=== PATIENT | male | born 1970 | race Hispanic/Latino ===

== ENCOUNTER 2016-09-01 17:07 | Inpatient (IN) | payer OTHER ==
[2016-09-01] MEDS ORDERED: NORCO 5/325 PO ONE (22:26)
--- NOTE | 2016-09-01 22:26 | Emergency Department Report ---
ED ENT HPI - General Chief complaint: Dental/Oral Stated complaint: SWOLLEN GUMS Time Seen by Provider: 09/01/16 22:19 Source: patient, police Mode of arrival: Ambulatory Limitations: No Limitations - History of Present Illness Initial comments: Patient here in custody coming from halfway facility complaint abscess to facial area and toothache. He reports he was sent by dentist to the hospital for drainage of abscess. Patient had similar incident in the past which required surgical intervention. Paperwork sent from facility suggest patient has dental abscess with facial swelling 6 days which has not improved with antibiotic therapy and he has a history of facial abscess with surgical intervention. Reports said that patient with cavity due to #14 with swelling of cold vestibule along with cellulitis of left cheek and left eye. And reported it says that they did x-ray which revealed gross decay if #14. Patient was given Rocephin 1 g IM at 2 AM 09/01/2016 and he is currently on Cleocin for 50 mg along with amoxicillin 500 mg twice a day which was given on and started on 08/26/2016. Patient denies any fever or chills. He reports that pain to left facial area is 10 out of 10. Denies any difficulty swallowing, drooling or swelling of throat. MD complaint: tooth pain, other (Lt facial swelling) Onset/Timin -: days(s) Location: tooth # (Lt upper back tooth), other (Lt face) Severity: severe Severity scale (0 -10): 10 Quality: aching, constant Improves with: none Worsens with: medication Context-Epistaxis: history of similar Context- Dental: history of dental caries, poor dental care Associated Symptoms: gum swelling, toothache. denies: fever, cough, pain with swallowing, sore throat, tinnitus, hearing loss, discharge from ear, rhinorrhea - Related Data Allergies Allergy/AdvReac Type Severity Reaction Status Date / Time No Known Allergies Allergy Verified 09/02/16 01:11 ED Dental HPI - General Chief complaint: Dental/Oral Stated complaint: SWOLLEN GUMS Time Seen by Provider: 09/01/16 22:19 Source: patient Mode of arrival: Ambulatory Limitations: No Limitations - Related Data Allergies Allergy/AdvReac Type Severity Reaction Status Date / Time No Known Allergies Allergy Verified 09/02/16 01:11 ED Review of Systems ROS: Stated complaint: SWOLLEN GUMS Other details as noted in HPI Comment: All other systems reviewed and negative Constitutional: denies: chills, fever Eyes: denies: vision change ENT: dental pain, other (Facial swelling) Respiratory: no symptoms reported Cardiovascular: denies: chest pain, palpitations, edema, syncope Gastrointestinal: denies: nausea, vomiting Musculoskeletal: denies: back pain, arthralgia Skin: denies: rash Neurological: denies: headache, numbness, paresthesias ED Past Medical Hx - Past Medical History Previous Medical History?: Yes Additional medical history: Tooth abscess - Surgical History Past Surgical History?: No - Family History Family history: no significant - Social History Smoking Status: Current Every Day Smoker Substance Use Type: None ED Physical Exam - General Limitations: No Limitations General appearance: alert, in no apparent distress - Head Head exam: Present: atraumatic, normocephalic, normal inspection - Eye Eye exam: Present: normal appearance, PERRL, EOMI. Absent: periorbital swelling , periorbital tenderness Pupils: Present: normal accommodation - ENT ENT exam: Present: normal orophraynx, mucous membranes moist, TM's normal bilaterally, normal external ear exam, other (left upper lip buccal area with swelling and tenderness.) - Expanded ENT Exam Expanded Ear exam: Present: normal external inspection Mouth exam: Present: tongue normal. Absent: drooling, trismus, muffled voice, laceration Teeth exam: Present: dental caries, dental tenderness # (#14), gingival enlargement, other (patient with left facial swelling at maxillary area with positive induration and fluctuance.) Throat exam: Positive: normal inspection - Neck Neck exam: Present: normal inspection, full ROM, lymphadenopathy. Absent: tenderness, meningismus - Respiratory Respiratory exam: Present: normal lung sounds bilaterally. Absent: respiratory distress, chest wall tenderness - Cardiovascular Cardiovascular Exam: Present: regular rate, normal rhythm, normal heart sounds - Extremities Exam Extremities exam: Present: normal inspection, full ROM, normal capillary refill. Absent: tenderness, pedal edema, joint swelling - Neurological Exam Neurological exam: Present: alert, altered, normal gait - Psychiatric Psychiatric exam: Present: normal affect, normal mood - Skin Skin exam: Present: warm, dry, normal color, other (cellulitis and abscess) - Expanded Skin Exam Expanded Description of rash: Present: tenderness (left facial area), erythematous (left facial area), swelling (facial area), indurated. Absent: discharge, fluctuant ED Course Vital Signs 09/01/16 09/01/16 09/02/16 17:52 21:30 01:42 Temperature 98.8 F 98.6 F 100.2 F H Pulse Rate 71 83 94 H Respiratory 18 18 20 Rate Blood Pressure 146/100 Blood Pressure 134/95 130/99 [Right] O2 Sat by Pulse 100 98 96 Oximetry - Reevaluation(s) Reevaluation #1: 09/01/16 23:58 Patient stable and awaiting CT scan with IV contrast. Pain relief with [place] 5/ 325 2 tablets. Reevaluation #2: 09/02/16 01:28 Patient to be admitted to [facility] [place] floor. Spoke with Dr. Valencia . Patient updated on decision to admit ED Medical Decision Making - Lab Data Result diagrams: 09/01/16 23:04 09/01/16 23:04 Lab Results 09/01/16 09/01/16 Range/Units 23:04 23:04 WBC 8.1 (4.5-11.0) K/mm3 RBC 4.07 (3.65-5.03) M/mm3 Hgb 13.0 (11.8-15.2) gm/dl Hct 38.3 (35.5-45.6) % MCV 94 (84-94) fl MCH 32 (28-32) pg MCHC 34 (32-34) % RDW 12.4 L (13.2-15.2) % Plt Count 240 (140-440) K/mm3 Lymph % (Auto) 20.3 (13.4-35.0) % [place] % (Auto) 8.1 H (0.0-7.3) % Eos % (Auto) 1.4 (0.0-4.3) % Baso % (Auto) 0.4 (0.0-1.8) % Lymph # 1.7 (1.2-5.4) K/mm3 [place] # 0.7 (0.0-0.8) K/mm3 Eos # 0.1 (0.0-0.4) K/mm3 Baso # 0.0 (0.0-0.1) K/mm3 Seg Neutrophils % 69.8 (40.0-70.0) % Seg Neutrophils # 5.7 (1.8-7.7) K/mm3 Sodium 139 (137-145) mmol/L Potassium 4.5 (3.6-5.0) mmol/L Chloride 99.0 (98-107) mmol/L Carbon Dioxide 23 (22-30) mmol/L Anion Gap 22 mmol/L BUN 12 (9-20) mg/dL Creatinine 0.6 L (0.8-1.5) mg/dL Estimated GFR > 60 ml/min BUN/Creatinine Ratio 20.00 % Glucose 91 (75-100) mg/dL Calcium 9.2 (8.4-10.2) mg/dL Cultures are pending - Radiology Data Radiology results: report reviewed CT scan of the neck with IV contrast reveals findings are consistent with left facial cellulitis and abscess over the anterior alveolar ridge/lower maxillary sinus. No evidence of osteomyelitis. Reactive left cervical adenopathy - Medical Decision Making ED course: Consent from correction facility for evaluation and treatment of facial abscess. CT scan report that patient with left facial cellulitis and abscess over left lower maxillary sinus. This was communicated to patient also decision to admit was medicated to patient. Patient given [place] 5/325 mg in emergency room to manage pain which brought his pain down to a 4 out of 10. CBC and BMP within normal limits. I collaborated with Dr. Tong on patient presentation, clinical findings. Patient to be admitted to patient for further evaluation and treatment for facial cellulitis and abscess. I spoke with Dr. Valencia who will be admitting patient inpatient. Critical care attestation.: If time is entered above; I have spent that time in minutes in the direct care of this critically ill patient, excluding procedure time. ED Disposition Clinical Impression: Cellulitis and abscess of mouth, Cellulitis and abscess of face Disposition: OP ADMITTED IP TO THIS HOSP Is pt being admited?: Yes Does the pt Need Aspirin: No Condition: Stable
[2016-09-01 23:37] LABS: Anion Gap 22 mmol/L; Blood Urea Nitrogen 12 mg/dL (9-20); Calcium 9.2 mg/dL (8.4-10.2); Carbon Dioxide 23 mmol/L (22-30); Glucose 91 mg/dL (75-100); Potassium 4.5 mmol/L (3.6-5.0); Sodium 139 mmol/L (137-145)
[2016-09-01 23:40] LABS: Basophils % (Auto) 0.4 % (0.0-1.8); Eosinophils % (Auto) 1.4 % (0.0-4.3); Hematocrit 38.3 % (35.5-45.6); Mean Corpuscular HGB Conc 34 % (32-34); Mean Corpuscular Hemoglobin 32 pg (28-32); Mean Corpuscular Volume 94 fl (84-94); Platelet Count 240 K/mm3 (140-440); Red Blood Count 4.07 M/mm3 (3.65-5.03); Red Cell Distribution Width 12.4 % (13.2-15.2); White Blood Count 8.1 K/mm3 (4.5-11.0)
--- NOTE | 2016-09-02 00:56 | Cat Scan Report ---
FINAL REPORT EXAM: CT NECK W CON HISTORY: Llt maxillary abscess TECHNIQUE: Helical CT was performed from the skull base to the thoracic inlet after the administration of iodinated intravenous contrast. PRIORS: None. FINDINGS: There is soft tissue swelling and edema of the left side of the face greatest over the alveolar ridge. Anterior to the lower left maxillary sinus and alveolar ridge, there is and area of low-attenuation with a thin enhancing rim consistent with an abscess. It measures 2.3 x 1.1 x 2.0 cm. The pharynx and para-pharyngeal soft tissues appear normal. The parotid and submandibular glands appear normal. The thyroid appears normal. The vascular structures appear normal. The bones are unremarkable. There are multiple enlarged left cervical lymph nodes especially of the submandibular area. There is mucosal thickening in the left maxillary sinus. The orbits appear normal. The visualized brain parenchyma appears within normal limits. IMPRESSION: 1. Findings are consistent with left facial cellulitis and an abscess over the anterior alveolar ridge/lower left maxillary sinus. 2. No evidence of osteomyelitis. 3. Reactive left cervical adenopathy
[2016-09-02] MEDS ORDERED: NACL 0.9% 1000 ML 1,000 ML IV ONE (01:22)
[2016-09-02] MEDS ORDERED: DILAUDID PO PRN (01:27)
[2016-09-02] MEDS ORDERED: DILAUDID ONE (03:33)
[2016-09-02] MEDS: ZOFRAN IV SCH ×6 (03:33→22:58)
[2016-09-02] MEDS: DILAUDID IV PRN ×4 (03:35→22:58)
[2016-09-02] MEDS ORDERED: MOTRIN ONE (03:44)
[2016-09-02] MEDS ORDERED: MOTRIN PO ONE ×2 (03:45→03:47)
[2016-09-02] MEDS ORDERED: ZOSYN/NS 3.375GM/50ML 3.375 GM/50 ML BAG IV SCH (06:00)
[2016-09-02] MEDS: UNASYN/NS 3 GM/100 ML 3 GM/100 ML BAG IV SCH ×3 (06:15→18:46)
--- NOTE | 2016-09-02 07:02 | Admit Criteria Form ---
Admission Criteria Documentation: CELLULITIS Clinical Indications for Admission to Inpatient Care (Place 'X' for any and all applicable criteria): Admission is indicated for ANY ONE of the following(1)(2)(3)(4)(5): [ ]I. Limb-threatening infection [ ]II. High-risk comorbid condition as indicated by ANY ONE of the following: [ ]a) Uncontrolled diabetes (eg, HbA1c greater than 10% (0.1)) [ ]b) Cirrhosis [ ]c) Neutropenia [ ]d) Asplenia [ ]e) Immunosuppression [ ]f) Symptomatic heart failure [ ]III. Failure of outpatient therapy as indicated by ALL of the following: [ ]a) Progression or no improvement after adequate trial (minimum of 48 hours, with longer period for stable lower extremity infection) [ ]b) Adequate antibiotic regimen as indicated by use of ANY ONE of the following: [ ]i) First-generation cephalosporin (e.g., cephalexin) [ ]ii) Antistaphylococcal penicillin (e.g., dicloxacillin) [ ]iii) Penicillin-allergic patient regimen (clindamycin, extended-spectrum fluoroquinolone, or doxycycline) [ ]iv) Resistant organism (eg, methicillin-resistant Staphylococcus aureus) regimen (6) [ ]c) Outpatient intravenous therapy regimen is not appropriate due to ANY ONE of the following. (7)(8)(9)(10): [ ]i) It was tried and was not successful (eg, progression of infection). [ ]ii) It is not available or cannot be arranged in a clinically appropriate time frame (e.g., the next day). [ ]iii) Clinical presentation (eg, acuity of infection, rapidity of progression, confirmed or suspected bacteremia) is judged to require ALL of the following: [ ]1) Immediate initiation of intravenous therapy ( eg, cannot wait for next day) [ ]2) Intensity of patient monitoring and observation (eg, vital sign measurement, checks for infection progression) that cannot be provided at other than inpatient level of care [ ]IV. Mental status changes [ ]V. Bacteremia [ ]. Hemodynamic instability [ ]VII. Suspected necrotizing soft tissue infection (e.g., gas in tissue)(11)( 12) [ ]VIII. Orbital infection (13)(14) [X]IX. Associated surgical procedure (e.g., abscess drainage, debridement) not amenable to outpatient, emergency department, or observation care [ ]X. Cutaneous gangrene [ ]XI. High fever (temperature greater than 39.5 degrees C (103.1 degrees F) (oral)) not responsive to outpatient, emergency department, or observation care therapy [ ]XIII. Inpatient admission required rather than observation care (Also use Cellulitis: Observation Care as appropriate) because of ANY ONE of the following : [ ]a) Periorbital or perineal infection that is severe or worsening [ ]b) Severe pain requiring acute inpatient management [ ]c) IV fluid to replace significant ongoing (e.g., for over 24 hours) losses (greater than 3L/m2 per day) [ ]d) Compartment syndrome monitoring (17) [ ]e) Strict or protective (eg, laminar flow) isolation [ ]f) Urgent debridement or skin grafting [ ]g) Bone or joint debridement [ ]h) Immediate inpatient surgery [ ]i) Other condition, treatment or monitoring requiring inpatient admission Extended stay beyond goal length of stay may be needed for (1)(18): [ ]a) Necrotizing soft tissue infection or fasciitis [ ]b) Gram-negative infection [ ]c) Methicillin-resistant Staphylococcal aureus (MRSA) infection [ ]d) Peripheral venous insufficiency with cellulitis [ ]e) Extensive edema [ ]f) Sepsis or continued Hemodynamic instability [ ]g) Continued high fever or mental status change [ ]h) Bacteremia [ ]i) Active serious comorbid conditions ( eg, heart failure, renal insufficiency) The original [employer] content created by [employer] has been revised. The portions of the content which have been revised are identified through the use of italic text or in bold, and [facility] has neither reviewed nor approved the modified material. All other unmodified content is copyright [email or web address] [employer] Please see references footnoted in the original [facility] edition 2016 Admission Criteria Met: Yes
--- NOTE | 2016-09-02 07:25 | Event Note ---
Date: 09/02/16 See H/p in reports L facial abscess on Un[facility] Surgery consult -Dr Hanson
[2016-09-02] MEDS: PERCOCET 5/325 PO PRN ×2 (10:26→13:54)
--- NOTE | 2016-09-02 11:13 | Cat Scan Report ---
CT HEAD WITHOUT CONTRAST: HISTORY: Abscess. Serial contiguous axial images were obtained through the cranium. Intravenous contrast material was not administered. The ventricles are normal in size and appearance. There is no mass effect or midline shift. No areas of abnormally increased or decreased attenuation are seen. No mass lesion is seen. IMPRESSION: Cranial CT scan within normal limits.
--- NOTE | 2016-09-02 11:19 | Cat Scan Report ---
CT FACIAL BONES WITHOUT CONTRAST History: Abscess. Technique: Helical CT with sagittal and coronal reformatted images. Findings: There is moderate to severe left facial soft tissue swelling. No IV contrast was administered which limits this exam, but no encapsulated fluid collection consistent with abscess is identified on noncontrast CT. The facial bones are intact. No evidence for fracture or bony destruction. A left maxillary molar appears to have eroded through the left maxillary bone which is best appreciated on image 82, series 2. There is a small amount of lucency surrounding the tooth root. This may represent an early periapical tooth abscess. Please correlate with the patient. There is moderate mucosal thickening in the left maxillary sinus. The remaining sinuses are clear. Impression: Left facial soft tissue swelling as outlined above. No discrete abscess is visualized. This may arise from poor dentition as outlined above.
--- NOTE | 2016-09-02 12:54 | History and Physical Report ---
CHIEF COMPLAINT: Left facial swelling. HISTORY OF PRESENT ILLNESS: A 45-year-old shelter inmate male brought in for left facial area redness and swelling and toothache. The patient was sent to the dentist for drainage of abscess. The patient had similar incident in the past, which required surgical intervention. The patient has dental abscess with facial swelling for 6 days, which has not improved with antibiotic therapy. The patient has had cavity in the teeth #14 with left cheek swelling extending up to the left eye. The patient was given Rocephin in the ER. No fever, no chills. Pain is about 8 on a scale of 1-10. PAST MEDICAL HISTORY: Leukocytosis. No hypertension, no diabetes. PAST SURGICAL HISTORY: None. FAMILY HISTORY: No significant family history. SOCIAL HISTORY: Smokes about a pack a day. REVIEW OF SYSTEMS: Significant for: CONSTITUTION: No fever, no chills. HEENT: As mentioned in the left facial swelling and redness present. NECK: Supple. No neck pain. CARDIOVASCULAR: No chest pain, no palpitations. RESPIRATORY: No shortness of breath or wheezing. No cough. GASTROINTESTINAL: No nausea, no vomiting, no diarrhea. GENITOURINARY: No dysuria, no flank pain. MUSCULOSKELETAL: No joint pains. No muscle pains. CENTRAL NERVOUS SYSTEM: No syncope, no seizures. PHYSICAL EXAMINATION: GENERAL: A middle aged male, cooperative during examination. VITAL SIGNS: Blood pressure is 134/95, repeat is 119/86, temperature is 101.2, pulse is 83, respirations are 18. HEENT: Unremarkable except for left facial swelling 4 x 4 cm with erythema present, induration present. Soft fluctuation present. NECK: Supple, no lymphadenopathy, no thyromegaly. LUNGS: Clear to auscultation and percussion. Good air entry. CARDIOVASCULAR: S1, S2 heard. No gallop, no murmur, no rub. Apical impulse in left fifth intercostal space and midclavicular line. ABDOMEN: Soft and benign. No hepatosplenomegaly. No guarding, no rigidity. Hernial orifices are normal. EXTREMITIES: Good pedal pulses. No pedal edema. CENTRAL NERVOUS SYSTEM: Alert and oriented x 4. NEUROLOGIC: Nonfocal exam. LABORATORY DATA: White count is 8100, H and H is 13.0 and 38.3, platelet count is 240,000. Sodium is 139, potassium is 4.5. BUN and creatinine is [address] shows findings consistent with left facial cellulitis and abscess over the anterior alveolar ridge. No evidence of osteomyelitis. Reactive left cervical adenopathy. It measures 2.3 x 1.1 x 2.2 cm anterior to the left lower maxillary sinus and alveolar ridge, consistent with an abscess. ASSESSMENT AND PLAN: 1. Left facial abscess, IV antibiotics for now. Surgical consult requested. IV clindamycin 900 mg q.8h started. 2. Deep venous thrombosis prophylaxis, Lovenox 40 mg subcutaneous daily. [facility]# [id number] JULIET/KOKI
--- NOTE | 2016-09-02 14:37 | Event Note ---
Date: 09/02/16 Patient with left facial abscess associated with dental. He was seen and examined. Surgeon consulted.
--- NOTE | 2016-09-03 00:26 | Consultation ---
HISTORY OF PRESENT ILLNESS: This man was seen in the Emergency Room, where he was in a [place] [facility] and over the last week has been experiencing severe pain to the left cheek area. It is increasing in intensity and in the last 2 days showed evidence of inflammation and redness in the entire cheek, impinging on his eye on the left side. The man told me he had the same about sometimes ago, but everything went fine. At this time, it was very severe. He never had an abdominal operation. He never had any surgery. He had CAT scan of the neck that was totally negative. CAT scan of the face; however, today was reviewed with Dr. Alvarenga, our radiologist. There is evidence of severe inflammation around his molar tooth on the left side with severe edema, no evidence of any abscess formation; however, with the above-mentioned findings, the patient was thus admitted for further evaluation. The patient was admitted under Dr. Valencia's service. PHYSICAL EXAMINATION: GENERAL: Showed a well preserved, obese white male, who is in no distress. He looked in pain to the left cheek that is moderately to severely edematous and inflamed, closing his left eye. HEAD AND NECK: Essentially negative otherwise. CHEST: Essentially clear. HEART: Sound normal to me. ABDOMEN: Protuberant, soft, benign. EXTREMITIES: Showed no significant edema. IMPRESSION AND PLAN: Severe cellulitis involving the left cheek and severe edema, radiologically seen on the head x-ray over the premolar and molar teeth on the left side superiorly. I believe this need to be addressed. Dr. Valencia is already going to admit him, going to be started on antibiotics and then we are going to repeat the same. I did indicate to the people and to the patient that he needs a dental evaluation. In the meantime, we are going to give some antibiotics, whenever he goes back to the facility they will inform the dental MD ,. JOB# [id number] CLAUDIA/KOKI
[2016-09-03] MEDS ORDERED: CEPHULAC PO ONE ×2 (00:43→23:30)
[2016-09-03] MEDS ORDERED: TYLENOL PO PRN (00:55)
[2016-09-03] MEDS: UNASYN/NS 3 GM/100 ML 3 GM/100 ML BAG IV SCH ×3 (01:10→11:22)
[2016-09-03] MEDS: ZOFRAN IV SCH (02:10)
[2016-09-03] MEDS: DILAUDID IV PRN ×4 (03:13→15:43)
[2016-09-03] MEDS: D5NS 1,000 ML IV SCH ×2 (03:22→15:42)
[2016-09-03] MEDS ORDERED: ZOFRAN IV PRN (05:09)
--- NOTE | 2016-09-03 09:57 | Discharge Summary ---
Providers - Providers Date of Admission: 09/02/16 01:24 Attending physician: WILLIAM THAO 09/02/16 07:26 Consult to Physician [CONS] Routine Consulting Provider: AMISHA TOMAS Reason For Exam: L facial abscess Place consult to:: Dr. Tomas Notified:: yes Phone number called:: [phone] Was contact made?: Yes If yes, spoke with:: Dr. Tomas Time called:: 09:05 Primary care physician: MINGO CHIN MD Hospitalization Condition: Stable Exam - Constitutional Vitals: Temp Pulse Resp BP Pulse Ox 99.3 F 62 18 107/71 94 09/03/16 07:30 09/03/16 07:30 09/03/16 07:30 09/03/16 07:30 09/03/16 07:30 Plan Follow up with: MINGO CHIN MD [Primary Care Provider] - 7 Days
--- NOTE | 2016-09-03 14:06 | Progress Note ---
Assessment and Plan Assessment and plan: left facial maxillary sinus abscess Fever due to above Plan: Change abx to zosyn Patient likely will need drainage from the left maxillary sinus abscess plan to d/c when skilled nursing authority can set up apt with oral surgeon cont to monitor cont supportive care and monitor clinically Continue DVT prophylaxis History Interval history: Patient seen and examined. Medical records and medication list reviewed. No acute event overnight noted by the RN. Patient complains of left-sided facial pain and swelling. Patient is tolerating diet. Discussed plan of care at bedside with patient. Hospitalist Physical - Physical exam Narrative exam: GENERAL: well-developed and well-nourished WM lying on bed appeared to be in no discomfort. HEENT: Normocephalic. Atraumatic. No conjunctival congestion or icterus. Patient has moist mucous membranes. left sided facial swelling, erythrema, tenderness and firmness. NECK: Supple. Trachea midline. CHEST/LUNGS: Clear to auscultated bilaterally, breathing nonlabored. No wheezes crackles or rhonchi. HEART/CARDIOVASCULAR: Regular in rate and rhythm. S1 and S2 positive. ABDOMEN: Abdomen is soft, nontender. Patient has normal bowel sounds. SKIN: There is no rash. Warm and dry. NEURO: No focal motor deficit. Follows command. MUSCULOSKELETAL: No joint effusion or tenderness. EXTRIMITY: No edema, no cyanosis or clubbing. PSYCH: Cooperative. - Constitutional Vitals: Temp Pulse Resp BP Pulse Ox 99.3 F 62 18 107/71 94 09/03/16 07:30 09/03/16 07:30 09/03/16 07:30 09/03/16 07:30 09/03/16 07:30 Results - Labs CBC & Chem 7: 09/01/16 23:04 09/01/16 23:04 Labs: Laboratory Last Values WBC 8.1 K/mm3 (4.5-11.0) 09/01/16 23:04 RBC 4.07 M/mm3 (3.65-5.03) 09/01/16 23:04 Hgb 13.0 gm/dl (11.8-15.2) 09/01/16 23:04 Hct 38.3 % (35.5-45.6) 09/01/16 23:04 MCV 94 fl (84-94) 09/01/16 23:04 MCH 32 pg (28-32) 09/01/16 23:04 MCHC 34 % (32-34) 09/01/16 23:04 RDW 12.4 % (13.2-15.2) L 09/01/16 23:04 Plt Count 240 K/mm3 (140-440) 09/01/16 23:04 Lymph % (Auto) 20.3 % (13.4-35.0) 09/01/16 23:04 [place] % (Auto) 8.1 % (0.0-7.3) H 09/01/16 23:04 Eos % (Auto) 1.4 % (0.0-4.3) 09/01/16 23:04 Baso % (Auto) 0.4 % (0.0-1.8) 09/01/16 23:04 Lymph # 1.7 K/mm3 (1.2-5.4) 09/01/16 23:04 [place] # 0.7 K/mm3 (0.0-0.8) 09/01/16 23:04 Eos # 0.1 K/mm3 (0.0-0.4) 09/01/16 23:04 Baso # 0.0 K/mm3 (0.0-0.1) 09/01/16 23:04 Seg Neutrophils % 69.8 % (40.0-70.0) 09/01/16 23:04 Seg Neutrophils # 5.7 K/mm3 (1.8-7.7) 09/01/16 23:04 Sodium 139 mmol/L (137-145) 09/01/16 23:04 Potassium 4.5 mmol/L (3.6-5.0) 09/01/16 23:04 Chloride 99.0 mmol/L (98-107) 09/01/16 23:04 Carbon Dioxide 23 mmol/L (22-30) 09/01/16 23:04 Anion Gap 22 mmol/L 09/01/16 23:04 BUN 12 mg/dL (9-20) 09/01/16 23:04 Creatinine 0.6 mg/dL (0.8-1.5) L 09/01/16 23:04 Estimated GFR > 60 ml/min 09/01/16 23:04 BUN/Creatinine Ratio 20.00 % 02/19/17 23:04 Glucose 91 mg/dL (75-100) 09/01/16 23:04 Calcium 9.2 mg/dL (8.4-10.2) 09/01/16 23:04 - Imaging and Cardiology Imaging and Cardiology: Report reviewed from CT scan of the head, face and neck.
--- NOTE | 2016-09-03 14:08 | Progress Note ---
Subjective Patient Reports: Positive: feels better, still having pain Narrative: feels 30% better swelling less ,on ampicillin will D/ S to have orthodetist seee Pt after leaving . Objective Vital Signs - 12hr 09/03/16 09/03/16 09/03/16 03:37 04:10 07:30 Temperature 101.6 F H 99.6 F 99.3 F Pulse Rate [ 84 62 Left] Respiratory 20 18 Rate Blood Pressure 111/62 107/71 [Left Arm] O2 Sat by Pulse 94 Oximetry - Labs 09/01/16 23:04 09/01/16 23:04
[2016-09-03] MEDS: ZOSYN/NS 4.5GM/100ML 4.5 GM/100 ML VIAL IV SCH ×2 (14:50→21:45)
--- NOTE | 2016-09-03 15:38 | Discharge Summary ---
Providers - Providers Date of Admission: 09/02/16 01:24 Date of discharge: 09/03/16 Attending physician: WILLIAM THAO 09/02/16 07:26 Consult to Physician [CONS] Routine Consulting Provider: AMISHA TOMAS Reason For Exam: L facial abscess Place consult to:: Dr. Tomas Notified:: yes Phone number called:: [phone] Was contact made?: Yes If yes, spoke with:: Dr. Tomas Time called:: 09:05 Primary care physician: SCIENTIFIC PHOTOGRAPHER Hospitalization Condition: Stable Hospital course: [facility] presented to ED with complaint of abscess to facial area and toothache. He was sent by dentist to the hospital for drainage of possible abscess. Paperwork sent from facility suggest patient has dental abscess with facial swelling 6 days which has not improved with antibiotic therapy and he has a history of facial abscess with surgical intervention. Reports said that patient with cavity due to #14 with swelling of cold vestibule along with cellulitis of left cheek and left eye. Patient was given Rocephin 1 g IM at 2 AM 09/01/2016 and he was on Cleocin for 50 mg along with amoxicillin 500 mg twice a day which was given on 09/01/2016 and started on 08/26/2016. He had CT of face which showed left facial cellulitis. Head Ct was unremarkable. He was placed on empirically on Unasyn and neck CT obtained which showed abscess formation at the left lower maxillary area. General surgeon was consulted and recommended to cont antibiotic iv and to be evaluated by oral surgeon for possible drainage. Patient continue to spike high fever and abx was changed to Zosyn. [facility] authority was notified and an appointment with an oral surgen was made at [place]. patient was kept NPO after midnight and was discharged around 6:30 am on 09/04/16. Patient was not seen on the day of discharge by MD. Discharge diagnoses: left facial maxillary sinus abscess Fever due to above Disposition: DISCHARGED TO HOME OR SELFCARE Time spent for discharge: 32 minutes Core Measure Documentation - Palliative Care Palliative Care/ Comfort Measures: Not Applicable - Core Measures Any of the following diagnoses?: none Exam - Constitutional Vitals: Temp Pulse Resp BP Pulse Ox 99.3 F 62 18 107/71 94 09/03/16 07:30 09/03/16 07:30 09/03/16 07:30 09/03/16 07:30 09/03/16 07:30 Plan Activity: advance as tolerated Weight Bearing Status: Weight Bear as Tolerated Diet: regular Follow up with: PRIMARY CARE, [Primary Care Provider] - 7 Days Prescriptions: oxyCODONE /ACETAMINOPHEN [Percocet 5/325 mg] 1 tab PO Q4H PRN #30 tablet PRN Reason: Pain, Moderate (4-6) Qsytkspomnoi-Bcuo-Qohtqfzf,Iso [Zosyn 4.5 gm/100 ml Galaxy Bag] 4.5 gm IV Q6H 10 Days
[2016-09-03] MEDS: PERCOCET 5/325 PO PRN (20:39)
[2016-09-03 23:17] VITALS: BP 109/80
[2016-09-04] MEDS: PERCOCET 5/325 PO PRN ×2 (01:14→05:14)
== END 2016-09-04 07:13 | disposition home or self-care (01) | DRG 603 ==
LOC: EEVIPCON 17:07 → ED 17:07 → 3A 09-02 01:24 → 4A 09-02 14:09 → 3A 09-02 23:48
PROVIDERS: ADMIT Internal Medicine; ATTEND Internal Medicine
DX: L02.01 Cutaneous abscess of face (principal); L03.211 Cellulitis of face; K12.2 Cellulitis and abscess of mouth; F17.210 Nicotine dependence, cigarettes, uncomplicated; J32.0 Chronic maxillary sinusitis
CPT/HCPCS: 36415; 70450; 70486; 70491; 80048; 85025; 87040; 96360; 96361; J0295; J1170; J2405; J2543; J7030; J7042; Q9967

== ENCOUNTER 2021-07-03 10:05 | Outpatient (CLI) | payer OTHER ==
[2021-07-03 11:23] LABS: Blood Urea Nitrogen 11 mg/dL (9-20)
--- NOTE | 2021-07-03 12:56 | Cat Scan Report ---
CT neck w con INDICATION / CLINICAL INFORMATION: 50 years Male; LEFT SUBMANDIBULAR MASS OMNI 300 75ML. TECHNIQUE: Contiguous thin cut axial images obtained through the neck following IV contrast. Sagittal and byrne l reconstructions performed by the technologist. All CT scans at this location are performed using CT dose reduction for ALARA by means of automated exposure control. COMPARISON: The study is compared to previous CT of 09/02/2016. FINDINGS: There is extensive left-sided cervical adenopathy with the largest nodes within the left ju gulodigastric region measuring 2.2 cm in greatest short axis dimension. There also prominent nodes mo re inferiorly with left level III node measuring 1.8 cm in short axis dimension. The findings would b e most concerning for neoplastic process such as primary lymphoma or metastatic disease and correlati on would be needed in this patient with history of left submandibular mass and any previous outside i maging. MUCOSAL SPACE: There is mild asymmetry of the left parapharyngeal soft tissues which may be related t o the degree of mass effect from the adenopathy. There is also relative effacement of the left pyrifo rm sinus with slight encroachment on the left lateral epiglottis at. There are incidental foci of renee cification within the right palatine soft tissues. The motion degrades image quality at the level the vocal cords. However, there appears be mild mild relative effacement of the left pyriform sinus. LYMPH NODES: As above with extensive left-sided cervical adenopathy. There are smaller nodes along th e right jugular chain which appear to measure less than 1 cm in short axis dimension and may be react lindsey. SALIVARY GLANDS: There appears be slight mass effect upon the left 70 better gland. However, no defin itive focal lesions are appreciated. Correlation would again be needed given history and any previous outside imaging. The visualized parotid glands also appear to symmetric attenuation without calcific ation. THYROID GLAND: Unremarkable. PARANASAL SINUSES: There is mild mucosal thickening along the inferior left maxillary sinus. SPINE: No significant abnormality of the cervical spine appreciated. VASCULAR STRUCTURES: The left-sided adenopathy results in compression of the left internal jugular ve in. However, there is no evidence of thrombosis at. The CT chest will be dictated separately. IMPRESSION: 1. There is extensive left-sided cervical adenopathy most concerning for neoplastic process as detail ed above. Signer Name: Jesus Bhandari MD Signed: 07/03/2021 12:51 PM Workstation Name: [id number]
--- NOTE | 2021-07-03 13:52 | Cat Scan Report ---
CT CHEST WITH CONTRAST INDICATION / CLINICAL INFORMATION: LEFT SUBMANDIBULAR MASS OMNI 300 75ML. TECHNIQUE: Axial CT images were obtained through the chest after IV contrast. All CT scans at this [facility] located within [facility] are performed using CT dose reduction for ALARA by means of automated exposure control. COMPARISON: CT neck 07/03/2021 FINDINGS: HEART: No significant abnormality. CORONARY ARTERY CALCIFICATION: None. THORACIC AORTA: No significant abnormality. MEDIASTINUM / IRAIDA: No significant abnormality. PLEURA: No pleural effusion. No pneumothorax. LUNGS: Mild tree-in-bud nodularity in the lingula. There is a 6 mm noncalcified nodule in the right m iddle lobe. ADDITIONAL FINDINGS: There are enlarged cervical lymph nodes in the lower neck as seen on series 2 im age 1 measuring 1.5 x 1.2 cm. UPPER ABDOMEN: Calculi in the right upper pole of the kidney. SKELETAL SYSTEM: Degenerative changes of the spine. No aggressive osseous lesion. IMPRESSION: 1. Enlarged left cervical lymph nodes are partially included on this exam. There are no suspicious me diastinal or axillary lymph nodes. 2. 6 mm noncalcified nodule in the right middle lobe. 3. Mild tree-in-bud nodularity in the lingula can be seen with infectious/inflammatory etiology. 4. Calculi in the right upper pole of the kidney. Signer Name: Sohail Nunez MD Signed: 07/03/2021 1:47 PM Workstation Name: [id number]
== END 2021-07-03 10:06 | disposition home or self-care (01) ==
LOC: CT 10:05
PROVIDERS: ATTEND Internal Medicine
DX: R91.1 Solitary pulmonary nodule (principal); K11.8 Other diseases of salivary glands; N20.0 Calculus of kidney; R59.0 Localized enlarged lymph nodes; M47.814 Spondylosis without myelopathy or radiculopathy, thoracic region
CPT/HCPCS: 36415; 70491; 71260; 82565; 84520; Q9967